=== PATIENT | female | born 1960 ===

== ENCOUNTER 2024-01-12 11:39 | Emergency (ER) | payer SELFPAY ==
[2024-01-12 11:45] VITALS: BP 142/71
--- NOTE | 2024-01-12 12:47 | ED.GENMED ---
History of Present Illness
General
Chief Complaint: Head Injury
Source: patient
Time Seen by Provider: 01/12/24 12:05
Travel History
Have you had any contact with someone who has COVID-19?: No
Do you have any symptoms of coronavirus? Fever > 100 degrees, chills, cough, shortness of breath, sore throat, loss of taste or smell, muscle aches, or headache?: No
History of Present Illness
History of Present Illness:
63-year-old female with past medical history of hyperlipidemia presenting to the emergency department after she was skiing in [place] on Friday, got to the end of her run and there was a lot of slush on the [place] causing her to fall backwards
striking her head on the ground stating the latch at the back of her ski helmet jammed into the back of her head. She denies any loss of consciousness but does note occipital headache and feeling off since the head injury. Yesterday was taking
Tylenol which she also took today but had 2 transient episodes of feeling as if her vision got distorted for 1 to 2 seconds and now also has a frontal headache. She denies any vomiting, focal weakness or numbness, current neck pain, use of
anticoagulants or any other concerns. Denies any previous history of head injuries.
Past History
Past History
ED Past Medical History: Hypercholesterolemia and Psychiatric
ED Past Surgical History: Gynecological and Orthopedic
Social History
Tobacco: Non-smoker
Alcohol: Occasional
Drug: None
Personal:
Living: with family
Employment: Employed
Review of Systems
Review of Systems
All Other Systems: ROS reviewed and negative except as documented in HPI and ROS
Phy Exam
Physical Exam
Physical Exam:
GENERAL: Alert , in no apparent distress
EYE: conjunctiva clear, pupils 3 mm bilateral, no nystagmus
Head: Normocephalic atraumatic
NECK: Supple, no midline tenderness
ENT: mmm.
LUNGS: no acute respiratory distress
NEUROLOGICAL: Alert and oriented x 3, moves all extremities, sensory intact to light touch throughout, no appreciable weakness or numbness to upper and lower extremities. No dysmetria or dysarthria.
SKIN: Warm and dry, skin intact.
MUSCULOSKELETAL: well perfused.
PSYCH: Normal and appropriate interaction.
Scores
Heart Failure Risk
Heart Failure Risk Score: Not Applicable
Heart Score for Chest Pain Patients
STEMI patient?: Not applicable
Withdrawal Assessment of Alcohol
Withdrawal Assessment Completed?: Not applicable
Course
Orders/Labs/Results
Orders:
Orders
01/12/24 11:49
CT Head W/o Iv Contrast Urgent
Comment:
Reason For Exam: fell while skiing on friday andhit head. denies
Vital Signs
Initial and Last Documented VS:
Initial Vital Signs
Temp Pulse Resp BP Pulse Ox
98.2 F 77 16 142/71 98
01/12/24 11:45 01/12/24 11:45 01/12/24 11:45 01/12/24 11:45 01/12/24 11:45
Last Documented Vital Signs
Temp Pulse Resp BP Pulse Ox
98.2 F 77 16 142/71 98
01/12/24 11:45 01/12/24 11:45 01/12/24 11:45 01/12/24 11:45 01/12/24 11:45
MDM/Problems Addressed
Differential Diagnosis Includes:
Contusion, concussion, intracranial bleeding, calvarial fracture
MDM/Problems Addressed:
63-year-old female presenting to the emergency department for evaluation of head injury while skiing 2 days ago. Today became concerned due to 2 transient episodes of bilateral visual changes that were only around 4 1 to 2 seconds. No other
neurologic findings. Exam reassuring. CT ordered. Reassessment following
*Radiology
Radiology exam reviewed: radiology read reviewed
*Pulse Oximetry
Patient hypoxic: no
*Critical Care Note
Total Time (30-74mins, 75-104mins- exclusive of procedures): Not Applicable
Patient Management
Escalation/DeEscalation of care consider admission/obs:
CT without any acute pathologies. Discussed signs and symptoms of concussion as well as management. Patient to continue NSAIDs/Tylenol as needed for headache. Discussed avoidance of triggers that are making symptoms worse. She will follow-up
with primary care provider. Aware of return precautions. Otherwise stable for discharge home.
ED Attending Note
-
Portions of this chart may have been created with voice recognition software.� Occasional wrong word or��sound alike� substitutions may have occurred due to the inherent limitations of voice recognition software.
Discharge Plan
Departure
Patient Disposition: Home (Routine Discharge)
Date of Disposition: 01/12/24
Time of Disposition: 12:48
Patient with high blood pressure during this ER visit?: Yes
Discharge Problem:
Head injury
Instructions: Concussion, Adult (DC)
Interventions
Interventions:
*Risk Screen - Suicide Last Done: 01/12/24 12:16
*General Assessment Last Done: 01/12/24 12:16
*Neglect/Abuse Screening Last Done: 01/12/24 12:16
ED- Fall Risk Assessment Last Done: 01/12/24 12:16
*ED COVID-19 Vaccine History Last Done: 01/12/24 11:45
*Nursing Disposition Last Done: 01/12/24 12:57
ED- Neurological Assessment Last Done: 01/12/24 12:15
ED-Skin Assessment Last Done: 01/12/24 12:15
Discharge Date and Time
Print Language: BELGIAN
[2024-01-12 12:57] VITALS: BP 114/62
== END 2024-01-12 13:00 | disposition home or self-care (01) ==
LOC: EMR 11:39
PROVIDERS: EMERGENCY PHYSICIAN Emergency Medicine
DX: S09.90XA Unspecified injury of head, initial encounter (principal); V00.321A Fall from snow-skis, initial encounter; E78.00 Pure hypercholesterolemia, unspecified
CPT/HCPCS: 99284; 70450